=== PATIENT | male | born 1945 | race Caucasian/White ===

== ENCOUNTER → 2024-08-25 | Outpatient (CLI) | payer MEDICARE, BC ==
[~2024-08-25] MED LIST: FLOMAX 0.40.4 MG/CAP PO; FOLIC ACID 40400 MCG PO; GLUCOSAMINE & C1 CAP PO; IRON TABLETS325 MG PO; PERCOCET 325 MG1 TA2 PO; SULFASALAZINE500 MG PO; VITAMIN C BUFF500 MG PO; ZOFRAN 4MG T4 MG/TAB PO; [UNRECOGNIZED DRUG - OTHER]
[2024-08-25 11:07] LABS: HEMOGLOBIN 11.4 g/dl (13.5-18.0); MEAN CELL VOLUME 111 fl (80.0-100.0); MEAN CORPUSCULAR HEMOGLOBIN 39 pg (27-31); MEAN CORPUSCULAR HGB CONC 35 g/dl (33.0-37.0); MEAN PLATELET VOLUME 10.3 fl (7.4-10.4); PLATELET COUNT 268 K/mm3 (130-400); RED BLOOD COUNT 2.94 M/mm3 (4.20-5.60); REDCELL DISTRIBUTION WIDTH-CV 14.2 % (11.5-14.5)
[2024-08-25 11:09] LABS: HEMATOCRIT 32.6 % (42.0-52.0)
[2024-08-25 11:20] LABS: ALBUMIN 3.5 g/dL (3.4-4.8); CALCIUM 9.4 mg/dL (8.4-10.2); CREATININE, serum 0.9 mg/dL (0.72-1.25); TOTAL PROTEIN 6.2 g/dl (6.2-8.1)
[2024-08-25 12:42] LABS: BAND 3 % (0-10); EOSINOPHIL 1 % (0-4); LYMPHOCYTE 4 % (20.0-51.0); NEUTROPHILS 87 % (42.0-75.2); PLATELET ESTIMATE NORMAL (NORMAL)
== END ==
LOC: COL.LAB 10:21
PROVIDERS: Internal Medicine
DX: C61 Malignant neoplasm of prostate (principal)